=== PATIENT | male | born 1965 | race Two or more races ===

== ENCOUNTER → 2021-05-16 | Day surgery (SDC) | payer MEDICARE, MEDICAID ==
[~2021-05-16] MED LIST: LIDOCAINE HCL 1% 20ML VIAL (Pyxis) INJ ONE
[2021-05-16 12:09] LABS: BASOPHILS % 1.2 % (0.0-2.0); EOSINOPHILS % 1.4 % (0.0-5.0); HEMATOCRIT. 27.4 % (42.0-52.0); HEMOGLOBIN. 9.2 g/dL (14.0-18.0); LYMPHOCYTES % 21.7 % (20.0-50.0); MEAN CORPUSCULAR HEMOGLOBIN 30.3 pg (28.0-32.0); MEAN CORPUSCULAR VOLUME 89.9 fL (80.0-94.0); MEAN PLATELET VOLUME 8.2 fl (7.4-10.4); MONOCYTES % 12.6 % (2.0-8.0); NEUTROPHILS % 63.1 % (40.0-76.0); PLATELET 181 x1000/uL (130-400); RED BLOOD CELL COUNT 3.04 mill/uL (4.7-6.1); RED CELL DISTRIBUTION WIDTH 15.6 % (11.6-14.6)
[2021-05-16 12:31] LABS: PARTIAL THROMBOPLASTIN TIME 24.8 sec (23.4-31.0); PROTHROMBIN TIME 10.4 sec (9.6-11.0)
== END | disposition home or self-care (01) ==
LOC: ANGIO 11:13
PROVIDERS: ATTEND Internal Medicine Nephrology
DX: N18.6 End stage renal disease (principal); Z79.899 Other long term (current) drug therapy; Z98.890 Other specified postprocedural states
CPT/HCPCS: 36415; 36589; 85025; 85610; 85730; J3490

== ENCOUNTER → 2022-02-19 | Day surgery (SDC) | payer MEDICARE, MEDICAID ==
[~2022-02-19] VITALS: Ht 177.8 cm; Wt 96.2 kg
[~2022-02-19] MED LIST changes: +ASPI-1497 PO; +ATOR40TA70 PO; +CALC0.253 PO; +CHOL100046 PO; +CIPROFLOXACIN 0.3% OPHTH SOLN 2.5ML LEFTEYE ONE; +CYCL100C PO; +DULA1.5P SQ; +FENTANYL CITRATE/PF 50MCG/ML 2ML VIAL ONE; +FOLI0.8T23 PO; +GLYCOPYRROLATE 0.2 MG/ML 2ML VIAL ONE; +HYDROMORPHONE HCL/PF 2MG/ML CPJ IV PRN; +LABETALOL 5MG/ML SYR 20 MG/4 ML SYRINGE IV PRN; +LOSA25TA26 PO; +MEPERIDINE HCL/PF 25MG/ML CPJ IV PRN; +METHYLPREDNISOLONE SOD SUCC 40 MG/ML VIAL ONE; +MIDAZOLAM HCL 2 MG/2 ML VIAL ONE; +ONDANSETRON HCL 4MG/2ML INJ IV PRN; +PROPOFOL 200MG/20ML VIAL IV ONE; +SODIUM CHLORIDE 0.9% 500 ML IV ONE; +TOBRAMYCIN SULFATE 40MG/ML 2ML ONE; +TOPUD MT
== END | disposition home or self-care (01) ==
LOC: OR 06:55
PROVIDERS: ATTEND Ophthalmology
DX: H11.002 Unspecified pterygium of left eye (principal); E78.00 Pure hypercholesterolemia, unspecified; I12.0 Hypertensive chronic kidney disease with stage 5 chronic kidney disease or end stage renal disease; N18.6 End stage renal disease; E11.22 Type 2 diabetes mellitus with diabetic chronic kidney disease; Z79.899 Other long term (current) drug therapy; Z98.890 Other specified postprocedural states; Z20.822 Contact with and (suspected) exposure to COVID-19; Z79.82 Long term (current) use of aspirin; Z79.84 Long term (current) use of oral hypoglycemic drugs
CPT/HCPCS: 36415; 65426; 82962; 84132; 87426; 88304; C9803; J2250; J2704; J2920; J3010; J3260; J3490